=== PATIENT | female | born 1965 | race Caucasian/White ===

== ENCOUNTER 2017-03-26 14:41 | Emergency (ER) | payer SELFPAY ==
[~2017-03-26] VITALS: Ht 167.6 cm; Wt 86.2 kg
[~2017-03-26 14:41] MED LIST: ASPI-524 PO; DICL100G16 TP; FAMO20TA8 PO; HYDR25TA4 PO; LISI-600 PO
[2017-03-26 14:46] VITALS: BP 127/85; PULSE 95; RESP 18; TEMP 98.3; O2SAT 97
--- NOTE | 2017-03-26 15:00 | NUR ---
Placed in room 4 . 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 To gown for exam. Side rails up. Report received from RASHAWN Davies.
--- NOTE | 2017-03-26 15:00 | NUR ---
Pt presents to ED with Chest pressure 5/10, Abd pain, fatigue x 2 days. Pt reports hx iof TIA. Pt reports her s/s feel similar to when she had her TIA. Pt is A&O x4
--- NOTE | 2017-03-26 15:01 | NUR ---
ER at bedside examining patient.
[2017-03-26] MEDS ORDERED: cloNIDine HCL 0.1 MG TABLET PO ONE (15:15)
[2017-03-26] MEDS ORDERED: LORazepam 1 MG TABLET PO ONE (15:15)
--- NOTE | 2017-03-26 15:37 | NUR ---
Admin medication as ordered. pt sonja well
[2017-03-26 15:51] LABS: BASOPHILS % (AUTO) 0.3 % (0.0-2.0); EOSINOPHILS # (AUTO) 0.1 K/uL (0.0-0.4); HEMATOCRIT 41.7 % (36-48); HEMOGLOBIN 14.1 g/dL (12.0-16.0); LYMPHOCYTES # (AUTO) 1.2 K/uL (1.0-5.5); LYMPHOCYTES % (AUTO) 18.1 % (20.5-51.5); MEAN CORPUSCULAR HEMOGLOBIN 31 pg (27-31); MEAN CORPUSCULAR HGB CONC 34 % (32-36); MEAN CORPUSCULAR VOLUME 91 fL (79.0-98.0); MONOCYTES # (AUTO) 0.4 K/uL (0.0-1.0); MONOCYTES % (AUTO) 6.3 % (1.7-9.3); NEUTROPHILS # (AUTO) 4.9 K/uL (1.8-7.7); NEUTROPHILS % (AUTO) 74.3 % (40.0-70.0); PLATELET COUNT (AUTO) 285 K/uL (130-430); RED BLOOD CELL COUNT(AUTO) 4.59 MIL/uL (4.2-6.2); RED CELL DISTRIBUTION WIDTH 11.6 % (9.0-15.0); WHITE BLOOD COUNT (AUTO) 6.6 K/uL (4.8-10.8)
[2017-03-26 15:56] LABS: CALCIUM 10.5 mg/dL (8.4-11.0); CREATININE 0.66 mg/dL (0.55-1.30); POTASSIUM 3.6 mmol/L (3.5-5.1)
[2017-03-26 16:01] LABS: ALBUMIN 4.1 g/dL (3.4-4.8); TOTAL BILIRUBIN 0.8 mg/dL (0.0-1.0)
--- NOTE | 2017-03-26 16:20 | NUR ---
Pt reports feeling relief of Chest pressure, and abd pain
[2017-03-26 16:59] VITALS: BP 125/78; PULSE 70; RESP 15; TEMP 98.5; O2SAT 98
--- NOTE | 2017-03-26 16:59 | NUR ---
Patient given written and verbal discharge instructions and verbalizes understanding. ER MD discussed with patient the results and treatment provided. Patient in stable condition. ID arm band removed. IV catheter removed intact and dressing applied, no active bleeding. Rx of [place] given. Patient educated on pain management and to follow up with PMD. Pain Scale 1/10 and tolerable. Opportunity for questions provided and answered.
== END 2017-03-26 16:59 | disposition home or self-care (01) ==
LOC: SED 14:41
DX: I16.0 Hypertensive urgency (principal); F41.9 Anxiety disorder, unspecified; K21.9 Gastro-esophageal reflux disease without esophagitis; Z86.73 Personal history of transient ischemic attack (TIA), and cerebral infarction without residual deficits; Z88.5 Allergy status to narcotic agent; Z79.82 Long term (current) use of aspirin; Z88.8 Allergy status to other drugs, medicaments and biological substances
CPT/HCPCS: 36415; 71010; 80053; 83880; 84484; 85025; 93005; 99285